=== PATIENT | female | born 2000 | race Caucasian/White ===

== ENCOUNTER 2021-06-22 09:04 | Emergency (ER) | payer OTHER ==
[~2021-06-22] VITALS: Ht 157.5 cm; Wt 86.0 kg
[2021-06-22] MEDS ORDERED: ONDANSETRON HCL 4MG/2ML INJ IV STA (09:34)
[2021-06-22] MEDS ORDERED: SODIUM CHLORIDE 0.9% 1,000 ML IV ONE (09:45)
[2021-06-22 09:58] LABS: HEMATOCRIT. 42.6 % (36.0-48.0); HEMOGLOBIN. 14.4 g/dL (12.0-16.0); MEAN CORPUSCULAR VOLUME 77.1 fL (81.0-99.0); MEAN PLATELET VOLUME 10.7 fl (7.4-10.4); PLATELET 216 x1000/uL (130-400); RED BLOOD CELL COUNT 5.52 mill/uL (4.2-5.4); RED CELL DISTRIBUTION WIDTH 14.3 % (11.6-14.6)
[2021-06-22 10:07] LABS: CHLORIDE 107 mEq/L (98-107)
[2021-06-22 10:23] LABS: PLATELET ESTIMATE NORMAL
[2021-06-22 10:51] LABS: CLARITY URINE CLEAR (CLEAR); COLOR URINE YELLOW (YELLOW); KETONES URINE NEGATIVE (NEGATIVE); LEUKOCYTE ESTERASE URINE TRACE (NEGATIVE); NITRITE URINE NEGATIVE (NEGATIVE); OCCULT BLOOD URINE 3+ (NEGATIVE); PROTEIN URINE NEGATIVE (NEGATIVE); UROBILINOGEN URINE 0.2 E.U./dL (0.2-1.0)
[2021-06-22] MEDS ORDERED: KETOROLAC 30MG/ML VIAL IV STA (11:03)
[2021-06-22] MEDS ORDERED: MAGNESIUM/ALUMINUM HYDROXIDE/SIMETHICONE 30ML UDC PO STA (11:03)
[2021-06-22 12:11] LABS: HCG SCREEN NEGATIVE
[2021-06-22 13:06] LABS: *BARBITURATES SCREEN URINE NEGATIVE (NEGATIVE); *BENZODIAZEPINES SCREEN URINE NEGATIVE (NEGATIVE); *COCAINE SCREEN URINE NEGATIVE (NEGATIVE)
[2021-06-22 13:07] LABS: CANNABINOID URINE SCREEN NEGATIVE (NEGATIVE); METHADONE URINE SCREEN NEGATIVE (NEGATIVE); OPIATES URINE SCREEN NEGATIVE (NEGATIVE); PHENCYCLIDINE URINE SCREEN NEGATIVE (NEGATIVE)
[2021-06-22] MEDS ORDERED: ONDA4TAB5 MT (13:07)
[2021-06-22 13:18] LABS: *AMPHETAMINES SCREEN URINE NEGATIVE (NEGATIVE)
[2021-06-22 13:54] VITALS: BP 129/88
== END 2021-06-22 14:00 | disposition home or self-care (01) ==
LOC: ER 09:04
DX: R10.9 Unspecified abdominal pain (principal)
CPT/HCPCS: 36415; 74176; 80053; 80305; 81003; 83690; 84703; 85025; 96361; 96374; 96375; 99284; J1885; J2405; J7030